=== PATIENT | male | born 1985 | race Caucasian/White ===

== ENCOUNTER 2023-09-07 16:34 | Emergency (ER) | payer OTHER, SELFPAY ==
--- NOTE | ~2023-09-07 | XR_ITS ---
EXAMINATION: XR LUMBOSACRAL SPINE CLINICAL INFORMATION: Low back pain COMPARISON: None available. TECHNIQUE: Three views of the lumbosacral spine. FINDINGS: Bone alignment is normal. No fracture or dislocation. Mild disc space narrowing at L5-S1. XR/XR lumbar spine 2-3V IMPRESSION: Mild disc space narrowing at L5-S1.
--- NOTE | ~2023-09-07 | CT_ITS ---
EXAMINATION: CT LUMBAR SPINE WITHOUT CONTRAST CLINICAL INFORMATION: Midline tenderness. COMPARISON: Lumbar spine radiographs from 09/07/2023. TECHNIQUE: Multidetector helical imaging of the lumbar spine was obtained without intravenous contrast. Multiple axial reformats and coronal/sagittal reconstructions were created the technologist workstation for review. This CT examination was performed using dose optimization techniques as appropriate, variously including the following: *Automated exposure control. *Adjustment of mA and/or kV according to patient size (this includes techniques or standardized protocols for targeted exams where dose is matched to indication/reason for exam; i.e. extremities or head). *Use of iterative reconstruction technique. DLP: 525 mGy-cm FINDINGS: Straightening of the normal lumbar lordosis. Otherwise, normal anatomic alignment. No evidence of acute fracture or traumatic subluxation. The vertebral body heights are maintained. Mild degenerative disc disease from L2-S1. No suspicious lytic or sclerotic osseous lesions. No significant abnormalities of the paraspinal musculature. Limited evaluation of the intra-abdominal structures without significant abnormalities. The abdominal aorta is of normal contour and caliber. AXIAL SPINAL LEVELS: L1-L2: Normal annular contour. There is mild bilateral facet joint arthropathy. There is no neural foraminal stenosis. There is no demonstrated spinal canal stenosis. L2-L3: Mild diffuse disc bulge. There is mild bilateral facet joint arthropathy. There is mild left and no right neural foraminal stenosis. There is no demonstrated spinal canal stenosis. L3-L4: Mild diffuse disc bulge with posterior osseous ridging. There is mild bilateral facet joint arthropathy. There is moderate left and mild right neural foraminal stenosis. There appears to be narrowing of the subarticular zones with no overt spinal canal stenosis centrally. L4-L5: Moderate diffuse disc bulge with posterior osseous ridging and superimposed small central disc protrusion. There is mild to moderate bilateral facet joint arthropathy. There is moderate to severe right and moderate left neural foraminal stenosis. There appears to be narrowing of the subarticular zones with no overt spinal canal stenosis centrally. L5-S1: Moderate diffuse disc bulge with posterior osseous ridging and superimposed small central disc protrusion. There is mild to moderate bilateral facet joint arthropathy. There is moderate left and mild right neural foraminal stenosis. There is no demonstrated spinal canal stenosis. CT/CT lumbar spine wo IV con IMPRESSION: 1. No evidence of acute fracture or traumatic subluxation of the lumbar spine. 2. Moderate multilevel degenerative spondyloarthropathy of the lumbar spine as described in detail above. Most notably on this limited exam without intrathecal contrast, there appears to be narrowing of the subarticular zones at L3-L4, L4-L5, and L5-S1. Moderate neural foraminal stenoses from L3-S1.
[2023-09-07 17:11] VITALS: BP 135/90; PULSE 78; RESP 18; TEMP 36.9; O2SAT 97; BMI 35.0
--- NOTE | 2023-09-07 17:12 | ED_ITS ---
HPI - Back Pain/Injury General Chief Complaint: Back Pain/Injury Stated Complaint: back pain ,work inj Time Seen by Provider: 09/07/23 19:08 Source: patient Mode of arrival: ambulatory Limitations: no limitations History of Present Illness ED Provider: NYA WALTER PA-C HPI Narrative: 37-year-old male with no significant past medical history presents to the emergency department today for evaluation of bilateral low back pain that began after attempting to bend over and lift a heavy object while at work earlier today. Reports pain to entire low back, worse along mid spine. Pain is radiating down his left lower extremity. Admits to taking Motrin around 1300 with minimal improvement. Denies saddle anesthesia. Denies bowel or bladder incontinence or retention. Denies numbness/weakness/tingling of the lower extremities. Denies history of back surgery. Denies IV drug use. MD elicited complaint: back pain Onset (ago): hour(s) Related Data Previous Rx's ?Medication ?Instructions ?Recorded cyclobenzaprine 10 mg tablet 10 mg PO TID PRN muscle spasm #15 09/07/23 tabs tramadol 50 mg tablet 50 mg PO Q6H PRN pain #12 tabs 09/07/23 Allergies Allergy/AdvReac Type Severity Reaction Status Date / Time No Known Allergies Allergy Verified 09/07/23 17:13 Review of Systems Review of Systems: Constitutional: No fever, chills, fatigue, night sweats, weight changes ENT/Mouth: No ear pain, hearing loss, nasal congestion, sinus pain, rhinorrhea, sore throat Eyes: No eye pain, swelling, redness, vision changes, discharge Cardio: No chest pain, palpitations, MCDONNELL, orthopnea, peripheral edema Pulm: No SOB, cough, sputum, wheezing, dyspnea, hemoptysis GI: No nausea, vomiting, hematemesis, abdominal pain, diarrhea, constipation, hematochezia, melena : No irregular bleeding, dysuria, frequency, urgency, hesitancy, hematuria, flank pain, urinary flow changes, urinary incontinence or retention MSK: +back pain, No neck pain, joint pain, myalgias Skin: No lesions, rashes Neuro: No weakness, numbness, paresthesias, LOC, dizziness, headache All other systems reviewed and are negative. [facility] Past Medical History Attestation statement: The following information was validated with the patient. Source: old records reviewed and nursing notes reviewed Social History Social History Advance Directives: No Advance Directives Information Provided: Yes Do you have a plan to hurt others: No Plan Physical Exam Vital Signs: Vital Signs: Last Vital Signs Temp 98.6 F 09/07/23 23:56 Pulse 61 09/07/23 23:56 Resp 16 09/07/23 23:56 BP 119/70 09/07/23 23:56 Pulse Ox 96 09/07/23 23:56 O2 Del Method Room Air 09/07/23 23:56 BMI result Body Mass Index 35.0 Vital signs stable, afebrile Const: Other: Patient in obvious discomfort. Cannot find a comfortable position whether seated or standing secondary to his back pain. General: cooperative, healthy appearing and no acute distress Orientation/consciousness: patient oriented x3 Limitations: no limitations HEENT: Head: Yes normal to inspection, Yes normocephalic and Yes atraumatic Eyes: General: appearance normal, both eyes and all related structures Pupils: Equal, round and reactive pupils present EOM: EOMs intact bilaterally Neck: Other: + no cervical midline spinous tenderness or step-off deformity. Neck: Yes normal visual inspection, Yes full ROM and Yes no meningeal signs Resp: Effort & Inspection: normal respiratory effort Auscultation: clear to auscultation bilaterally Cardio: Rate: regular rate Rhythm: regular rhythm GI: Inspection: Yes normal to inspection Palpation (GI): Soft to palpation and nontender : General: Yes no CVA tenderness Back/Spine/Pelvis: Other: + midline spinous tenderness along lumba r spine without step-off deformity. There is bilateral lumbar paraspinal muscle tenderness to palpation. Back: no CVA tenderness Neuro: Other: Strength 5/5 intact throughout.? No saddle anesthesia.? Sensation intact to light touch.? Neurovascular intact distally.? General: patient oriented x3, gait normal and no meningeal signs Cranial nerves: Yes Equal, round and reactive pupils present Gait exam (Neuro): Normal gait present Course Course Course Narrative: This is a Rapid Medical Examination (RME) performed by Preston Walter PA-C in triage. Full HPI, ROS, assessment and treatment plan per primary provider in the Main ED. 37 yo male here for eval of b/l low back pain which began afrter bending down to lift a heavy object this morning around 0300 while at work. endorses worsening back pain, now radiating down LLE. took motrin at 1500 today with minimal relief. Denies saddle anesthesia, bowel or bladder incontinence or retention. No history of back surgery. on exam, midline lumbar spinous tenderness, no step off deformity. there is b/l lumbar paraspinal mm tenderness. Plan: imaging Reevaluation(s) Reevaluation #1: 1949-- X-ray of lumbar spine does not reveal acute fracture. On re-evaluation, patient reports only slight improvement in pain with Tylenol, lidocaine patch and Flexeril which was administered approximately 1 hour ago. He is still exquisitely tender along the lumbar spine. There is no palpable step-off deformity however given pain unresponsive to medications, will order CT scan. 2120-- patient stable at the end of my shift. Sign-out given to my colleague, Jared REA pending CT scan lumbar spine and disposition. Reevaluation #2: Patient received in sign-out at change of shift pending CT scan which does not show any acute findings. It does show moderate multilevel degenerative spondylo arthropathy of the lumbar spine. This was discussed with the patient. Will discharge the patient with cyclobenzaprine and tramadol to take in addition to ibuprofen and Tylenol. Return precautions were given Time: 23:21 Medications Administered Discontinued Medications Generic Name Dose Route Start Last Admin Trade Name Misbahq PRN Reason Stop Dose Admin Acetaminophen 975 mg 09/07/23 19:09 09/07/23 19:24 Acetaminophen 325 Mg Tablet PO 09/07/23 19:10 975 mg ONCE ONE Administration Cyclobenzaprine HCl 10 mg 09/07/23 19:08 09/07/23 19:23 Cyclobenzaprine Hcl 10 Mg Tablet PO 09/07/23 19:09 10 mg ONCE ONE Administration Ketorolac Tromethamine 30 mg 09/07/23 21:12 09/07/23 21:22 Ketorolac Tromethamine 30 Mg/Ml Vial IM 09/07/23 21:13 30 mg ONCE ONE Administration Lidocaine 1 patch 09/07/23 19:08 09/07/23 19:24 Lidocaine 4 % Patch Adh..Patch TRANSDERMA 09/07/23 19:09 1 patch ONCE ONE Administration Protocol Medical Decision Making Medical Decision Making [facility] Narrative: 37-year-old male with no significant past medical history presents to the emergency department today for evaluation of bilateral low back pain that began after attempting to bend over and lift a heavy object while at work earlier today. Patient hypertensive to 135/90. Vitals otherwise WNL. Afebrile. He is nontoxic appearing in no acute distress. Visibly uncomfortable, requesting to stand as sitting elicits pain. No midline spinous tenderness or step off deformity. No paraspinal muscle tenderness. Strength 5/5 intact throughout.? No saddle anesthesia.? Sensation intact to light touch. Neurovascular intact distally.?ambulating with stady gait. Differential diagnosis includes MSK sprain/strain, fracture, subluxation, disc herniation, sciatica. Unlikely cord compression, cauda equina, Guillain-[place], epidural abscess. Plan for lumbar imaging and pain control. Differential Diagnosis Differential Diagnoses: The differential diagnosis associated with the presentation includes as above Admission/Observation Not indicated. Independent Interpretation I performed an independent interpretation of an: Plain X-Ray and CT Scan Interpretation: X-ray lumbar spine without fracture, agree with radiologist's interpretation. CT lumbar spine without fracture, agree with radiologist's interpretation. Radiology Impression Discussion of test interpretation with radiology: I have reviewed the radiologist's reading. Radiologist Impression: EXAMINATION: XR LUMBOSACRAL SPINE CLINICAL INFORMATION: Low back pain COMPARISON: None available. TECHNIQUE: Three views of the lumbosacral spine. FINDINGS: Bone alignment is normal. No fracture or dislocation. Mild disc space narrowing at L5-S1. XR/XR lumbar spine 2-3V IMPRESSION: Mild disc space narrowing at L5-S1. EXAMINATION: CT LUMBAR SPINE WITHOUT CONTRAST CLINICAL INFORMATION: Midline tenderness. COMPARISON: Lumbar spine radiographs from 09/07/2023. TECHNIQUE: Multidetector helical imaging of the lumbar spine was obtained without intravenous contrast. Multiple axial reformats and coronal/sagittal reconstructions were created the technologist workstation for review. This CT examination was performed using dose optimization techniques as appropriate, variously including the following: *Automated exposure control. *Adjustment of mA and/or kV according to patient size (this includes techniques or standardized protocols for targeted exams where dose is matched to indication/reason for exam; i.e. extremities or head). *Use of iterative reconstruction technique. DLP: 525 mGy-cm FINDINGS: Straightening of the normal lumbar lordosis. Otherwise, normal anatomic alignment. No evidence of acute fracture or traumatic subluxation. The vertebral body heights are maintained. Mild degenerative disc disease from L2-S1. No suspicious lytic or sclerotic osseous lesions. No significant abnormalities of the paraspinal musculature. Limited evaluation of the intra-abdominal structures without significant abnormalities. The abdominal aorta is of normal contour and caliber. AXIAL SPINAL LEVELS: L1-L2: Normal annular contour. There is mild bilateral facet joint arthropathy. There is no neural foraminal stenosis. There is no demonstrated spinal canal stenosis. L2-L3: Mild diffuse disc bulge. There is mild bilateral facet joint arthropathy. There is mild left and no right neural foraminal stenosis. There is no demonstrated spinal canal stenosis. L3-L4: Mild diffuse disc bulge with posterior osseous ridging. There is mild bilateral facet joint arthropathy. There is moderate left and mild right neural foraminal stenosis. There appears to be narrowing of the subarticular zones with no overt spinal canal stenosis centrally. L4-L5: Moderate diffuse disc bulge with posterior osseous ridging and superimposed small central disc protrusion. There is mild to moderate bilateral facet joint arthropathy. There is moderate to severe right and moderate left neural foraminal stenosis. There appears to be narrowing of the subarticular zones with no overt spinal canal stenosis centrally. L5-S1: Moderate diffuse disc bulge with posterior osseous ridging and superimposed small central disc protrusion. There is mild to moderate bilateral facet joint arthropathy. There is moderate left and mild right neural foraminal stenosis. There is no demonstrated spinal canal stenosis. CT/CT lumbar spine wo IV con IMPRESSION: 1. No evidence of acute fracture or traumatic subluxation of the lumbar spine. 2. Moderate multilevel degenerative spondyloarthropathy of the lumbar spine as described in detail above. Most notably on this limited exam without intrathecal contrast, there appears to be narrowing of the subarticular zones at L3-L4, L4-L5, and L5-S1. Moderate neural foraminal stenoses from L3-S1. Independent Historian Clinical information obtained from an independent historian. History obtained from or confirmed by: Spouse External Record Review External record reviewed: Inpatient record Prescription Management I considered prescription management with: Pain Medication and Other (Lidocaine, Flexeril) Social Determinants Patient?s care significantly limited by Social Determinants of Health including: Other Social Determinant of Health Critical Care Time Critical Care Time Critical Care Time: No Discharge Plan Discharge Clinical Impression: Acute lumbar back pain Patient Disposition: Home, Self-Care Instructions: Acute Low Back Pain (ED) Additional Instructions: Your x-ray and CT scan did not show any acute fractures. You do have some degenerative changes/arthritis of the lumbar spine/lower back Use ibuprofen/Tylenol for pain. Use cyclobenzaprine for muscle spasms. Use tramadol for more severe, breakthrough pain This may make you sleepy, did not drink alcohol or drive after taking it Follow-up with your primary doctor Return for new or worsening symptoms Prescriptions: New cyclobenzaprine 10 mg tablet 10 mg PO TID PRN (Reason: muscle spasm) Qty: 15 0RF tramadol 50 mg tablet 50 mg PO Q6H PRN (Reason: pain) Qty: 12 0RF Stand Alone Forms: Work/School Release Interventions: ED Discharge Assessment Last Done: 09/07/23 23:56 Discharge Date/Time: 09/07/23 23:59 Print Language: Unknown
[2023-09-07] MEDS: Cyclobenzaprine HCl 10 MG TABLET PO (19:23)
[2023-09-07] MEDS: Lidocaine 4 % Patch ADH..PATCH 1 PATCH TRANSDERMA (19:24)
[2023-09-07] MEDS: Acetaminophen 325 MG TABLET 975 MG PO (19:24)
--- NOTE | 2023-09-07 19:47 | PC.NURSE ---
pt medicated per AN, lidocaine patch placed to lower back
[2023-09-07 19:52] VITALS: BP 136/85; PULSE 63; RESP 18; TEMP 36.8; O2SAT 96
[2023-09-07 20:51] VITALS: BP 116/68; PULSE 62; RESP 18; TEMP 36.6; O2SAT 97
[2023-09-07] MEDS: Ketorolac Tromethamine 30 MG/ML VIAL IM (21:22)
--- NOTE | 2023-09-07 21:48 | PC.NURSE ---
pt able to rest. felt relief from IM toradol
[2023-09-07 23:18] VITALS: BP 119/70; PULSE 61; RESP 16; TEMP 37; O2SAT 96
[2023-09-07 23:56] VITALS: BP 119/70; PULSE 61; RESP 16; TEMP 37; O2SAT 96
== END 2023-09-07 23:59 | disposition home or self-care (01) ==
PROVIDERS: Emergency Provider Emergency Medicine
DX: M54.50 Low back pain, unspecified (principal)
CPT/HCPCS: 72100; 72132; 96372; 99284; J1885